=== PATIENT | male | born 1940 | race Caucasian/White ===

== ENCOUNTER 2018-08-05 07:22 | Day surgery (SDC) | payer MEDICARE, BC ==
[~2018-08-05] VITALS: Ht 188 cm; Wt 102.3 kg
[2018-08-05 08:50] LABS: ALBUMIN 3.8 G/DL (3.4-5.0); BLOOD UREA NITROGEN 20 MG/DL (7-18); BUN/CREATININE RATIO 13.7 (5.4-32.0); CALCIUM 9.6 MG/DL (8.5-10.1); CHLORIDE 102 MMOL/L (99-107); CREATININE 1.46 MG/DL (0.60-1.10); PRE OP ANION GAP 11 (8-16); PRE OP GLUCOSE 99 MG/DL (70-104); PRE OP SODIUM 141 MMOL/L (135-145); TOTAL CARBON DIOXIDE 27.9 MMOL/L (24-32); eGFR 47 ML/MIN
[2018-08-05] MEDS ORDERED: HYDR-4383 PO (08:50)
[2018-08-05] MEDS ORDERED: LISI-600 PO (08:50)
[2018-08-05] MEDS ORDERED: METO25TA6 PO (08:50)
[2018-08-05] MEDS ORDERED: FERR325T28 PO (08:50)
[2018-08-05] MEDS ORDERED: FENT1PAT7 TD (08:50)
[2018-08-05] MEDS ORDERED: HYDR-4070 PO (08:50)
[2018-08-05] MEDS ORDERED: CELE-193 PO (08:50)
[2018-08-05] MEDS ORDERED: FURO-150 PO (08:50)
[2018-08-05] MEDS ORDERED: GABA600T2 PO (08:50)
[2018-08-05] MEDS ORDERED: AMLO5TAB PO (08:50)
[2018-08-05] MEDS ORDERED: POTA10TA36 PO (08:50)
[2018-08-05 08:53] LABS: INR 1.1 INR; PROTHROMBIN TIME 10.7 SECONDS (9.0-12.0)
[2018-08-05 09:08] LABS: BASOPHILS % (AUTO) 0.6 % (0-1); EOSINOPHILS # (AUTO) 0.4 X10'3 (0-0.9); LYMPHOCYTES # (AUTO) 0.3 X10'3 (1.1-4.8); LYMPHOCYTES % (AUTO) 5.8 % (21-51); MEAN CORPUSCULAR HEMOGLOBIN 28.7 PG (27.0-31.0); MEAN CORPUSCULAR HGB CONC 31.9 % (33.0-36.5); MEAN CORPUSCULAR VOLUME 90.2 FL (78-98); MEAN PLATELET VOLUME 8.3 FL (7.4-10.4); MONOCYTES # (AUTO) 0.5 X10'3 (0-0.9); MONOCYTES % (AUTO) 8.1 % (2-12); NEUTROPHILS # (AUTO) 4.6 X10'3 (1.8-7.7); NEUTROPHILS % (AUTO) 79.5 % (42-75); PRE OP PLATELET COUNT 251 X10'3 (140-440); RED BLOOD COUNT 3.77 X10'6 (4.70-6.10); RED CELL DISTRIBUTION WIDTH 18.8 % (11.5-14.5)
[2018-08-05 09:21] LABS: PRE OP HEMOGLOBIN 10.8 g/dL (14.0-17.9)
[2018-08-05 09:29] VITALS: BP 117/60
[2018-08-05] MEDS ORDERED: fentaNYL/PF 50MCG/1 ML 2ML syringe IV PRN (09:35)
[2018-08-05] MEDS ORDERED: LIDOcaine 1%/PF 5ML 10 MG/ML VIAL SQ ONE (09:35)
[2018-08-05] MEDS ORDERED: heparin sodium, porcine/PF 100unit/ml 5ML syringe ICATH ONE (09:35)
[2018-08-05] MEDS ORDERED: midazolam 2 mg/2 ml injection IV PRN (09:35)
[2018-08-05] MEDS ORDERED: heparin sodium, porcine/PF 100unit/ml 5ML syringe ONE (10:11)
[2018-08-05] MEDS ORDERED: midazolam 2 mg/2 ml injection ONE (10:12)
[2018-08-05] MEDS ORDERED: LIDOcaine 1%/PF 5ML 10 MG/ML VIAL ONE (10:12)
[2018-08-05] MEDS ORDERED: fentaNYL/PF 50MCG/1 ML 2ML syringe ONE (10:12)
[2018-08-05 11:15] VITALS: BP 145/59
[2018-08-05 11:30] VITALS: BP 139/64
[2018-08-05 11:45] VITALS: BP 155/106
== END 2018-08-05 12:40 | disposition home or self-care (01) ==
LOC: SSTAY O 07:22
PROVIDERS: ATTEND Radiology Diagnostic Radiology
DX: C61 Malignant neoplasm of prostate (principal); I48.91 Unspecified atrial fibrillation; I10 Essential (primary) hypertension; M47.819 Spondylosis without myelopathy or radiculopathy, site unspecified; N40.0 Benign prostatic hyperplasia without lower urinary tract symptoms; Z86.2 Personal history of diseases of the blood and blood-forming organs and certain disorders involving the immune mechanism; Z72.89 Other problems related to lifestyle; Z87.891 Personal history of nicotine dependence; Z79.891 Long term (current) use of opiate analgesic; Z79.899 Other long term (current) drug therapy; Z98.890 Other specified postprocedural states; Z84.89 Family history of other specified conditions
CPT/HCPCS: 36415; 36561; 76937; 77001; 80048; 85025; 85610; 99152; 99153; J1642; J2001; J2250; J3010; A6219; C1788; C1894